=== PATIENT | female | born 1940 | race Caucasian/White ===

== ENCOUNTER 2016-05-26 13:43 | Emergency (ER) | payer MEDICARE, OTHER | END 2016-05-26 18:37 | disposition home or self-care (01) | LOC: FER 13:43 | DX: K59.00 Constipation, unspecified (principal); K64.4 Residual hemorrhoidal skin tags; R14.0 Abdominal distension (gaseous); I10 Essential (primary) hypertension; Z88.0 Allergy status to penicillin; Z79.899 Other long term (current) drug therapy | CPT/HCPCS: 74000; 99283 ==